=== PATIENT | female | born 1980 | race Caucasian/White ===

== ENCOUNTER 2023-05-10 15:53 | Emergency (ER) | payer OTHER, SELFPAY ==
--- NOTE | ~2023-05-10 | XR_ITS ---
EXAMINATION: XR abdomen/kub 1V DATE: 05/10/2023 21:14 INDICATION: Constipation. TECHNIQUE: A supine view of the abdomen on 2 radiographs was obtained. COMPARISON: CT abdomen and pelvis 12/09/2010 FINDINGS: There are no dilated loops of bowel. There is a moderate volume of stool in the colon. IMPRESSION: 1. Nonobstructive bowel gas pattern. Reviewed, dictated and finalized at location E. [employer]
[2023-05-10 15:58] VITALS: BP 146/100; RESP 113; TEMP 36.9; O2SAT 97
--- NOTE | 2023-05-10 18:48 | ED.GENADULT ---
HPI - General Adult General Chief complaint: Unspecified <Sussy Benavides PA-C - Last Filed: 05/11/23 18:53> Stated complaint: rectal impaction <Sussy Benavides PA-C - Last Filed: 05/11/23 18:53> Time Seen by Provider: 05/10/23 18:48 <Sussy Benavides PA-C - Last Filed: 05/11/23 18:53> Focused HPI: This is a 43 year old female that presents to the ER for abdominal pain and constipation. Reports chronic problems with constipation. She has done enemas with little relief. Reports associated anorexia. Denies fever, or vomiting. GENERAL: Well-appearing, well-nourished, and in no acute distress. HEAD: Normocephalic, atraumatic. CHEST: Clear to auscultation. ?No respiratory distress. HEART: Regular rate and rhythm.? NEURO: ?Alert and oriented x3. Patient screened in triage and initial orders placed.? ?Additional care and disposition to be based upon?diagnostic testing and treatment. <Sussy Benavides PA-C - Last Filed: 05/11/23 18:53> History of Present Illness HPI narrative: 43-year-old female presenting to the emergency department for evaluation of constipation. Patient states she has been having ongoing constipation over the last few days, patient states she did attempt a enema at home but is still having symptoms. Patient describes rectal pressure. <You Prieto MD - Last Filed: 05/14/23 08:12> Related Data Allergies/adverse reactions: Allergies Allergy/AdvReac Type Severity Reaction Status Date / Time amoxicillin Allergy Unknown Verified 01/09/13 13:14 <Sussy Benavides PA-C - Last Filed: 05/11/23 18:53> Review of Systems Review of Systems: All systems reviewed & are unremarkable except as noted in HPI and below <You Prieto MD - Last Filed: 05/14/23 08:12> PMFSH Past Medical History Medical History: Medical History (Updated 05/12/23 @ 00:00 by Background Daemon) History of gastroesophageal reflux (GERD) <Sussy Benavides PA-C - Last Filed: 05/11/23 18:53> Family History Family History: Family History (Updated 10/17/15 @ 23:21 by DOCTOR UNKNOWN) Mother Family history of rheumatoid arthritis Father Patient's father is in good health Sibling Patient's sister is in good health Patient's brother is in good health <Sussy Benavides PA-C - Last Filed: 05/11/23 18:53> Social History Social History: Social History Smoking status: Never smoker Alcohol intake: never <Sussy Benavides PA-C - Last Filed: 05/11/23 18:53> Exam Narrative: APPEARANCE: Well appearing, no pain, no distress, well-nourished. HEAD: normocephalic, atraumatic. EYES: PERRLA/EOMI, conjunctivae clear. NOSE: Normal no drainage EARS:TMS clear with good light reflex. THROAT: Pharynx clear, no exudate. NECK: Supple. No adenopathy, no masses. RESPIRATORY: Airway patent, respirations nonlabored. Clear to auscultation bilaterally, no rales, rhonchi, wheezing. CARDIOVASCULAR: Regular rate and rhythm without murmurs rubs or gallops. ABDOMINAL: Soft, nontender, nondistended, normal bowel sounds Rectal exam: Unable tolerate rectal disimpaction, large stool ball in the rectal wall MUSCULOSKELETAL: Moves all extremities. Strength/ROM intact, No edema, No calf tenderness. NEURO: Alert. Cranial nerves II through XII intact. Grossly intact SKIN: Warm, dry. Normal Color <You Prieto MD - Last Filed: 05/14/23 08:12> Course Course Emergency Course: 43-year-old female presenting ED for evaluation constipation/rectal impaction. Patient is afebrile with no leukocytosis and a stable hemoglobin, no acute electrolyte abnormalities, patient does have an elevated blood glucose. X-ray showed no evidence of obstruction. Patient did not tolerate the rectal exam but did have a palpable stool ball in the rectum. Patient did not take much of the soap suds edema, but patient did have significant response and had a large bowel movement. Patient states she does feel improved and i
[2023-05-10 21:58] LABS: Basophils Percent Auto 0.6 % (0.2-1.2); Eosinophils Absolute Auto 0.1 K/mm3 (0-0.3); Eosinophils Percent Auto 1.2 % (0-4.4); Hematocrit 43.4 % (37.0-47.0); Hemoglobin 14.5 g/dL (12.0-15.0); Immature Granulocyte Absolute 0.06 K/mm3 (0.00-0.031); Immature Granulocyte Percent A 1.2 % (0-0.5); Immature Platelet Fraction Pct 5.6 % (0.9-11.2); Lymphocytes Absolute Auto 1.86 K/mm3 (0.9-3.2); Lymphocytes Percent Auto 38.4 % (18.3-44.2); Mean Corpuscular HGB Conc 33.4 g/dl (32-36); Mean Corpuscular Hemoglobin 32.4 pg (26-34); Mean Corpuscular Volume 97.1 fl (80-100); Mean Platelet Volume 10.8 fl (7.4-10.4); Monocytes Absolute Auto 0.5 K/mm3 (0.1-0.6); Monocytes Percent Auto 9.5 % (2.6-8.5); Neutrophils Absolute Auto 2.4 K/mm3 (1.3-6.7); Neutrophils Percent Auto 49.1 % (45.5-73.1); Platelet Count Result 92 k/mm3 (150-375); Red Blood Count 4.47 M/mm3 (4.2-5.4); Red Cell Distribution Width 13.6 % (11.5-14.5); White Blood Count 4.8 K/mm3 (4.5-10.0)
[2023-05-10 22:06] LABS: Alanine Aminotransferase 67 U/L (6-35); Albumin Level 3.9 g/dL (3.5-5.1); Alkaline Phosphatase 155 U/L (38-126); Anion Gap 5 mmol/L (8-16); Aspartate Amino Transferase 61 U/L (14-36); Bilirubin,Total 0.9 mg/dL (0.2-1.3); Blood Urea Nitrogen 13 mg/dL (7-17); Calcium 9.2 mg/dL (8.4-10.2); Carbon Dioxide 26 mmol/L (22-30); Chloride 102 mmol/L (98-107); Estimated Glomerular Filt Rate > 60; Glucose 329 mg/dL (65-110); Lipase 49 U/L (23-300); Potassium 3.7 mmol/L (3.4-5.0); Sodium 133 mmol/L (137-145)
[2023-05-10 22:09] VITALS: BP 144/90; PULSE 86; RESP 16; O2SAT 96
--- NOTE | 2023-05-10 22:30 | PC.NURSE ---
Patient unable to tolerate soap suds. 250 ml retained and agreeable to holding for a period of time.
--- NOTE | 2023-05-10 23:02 | PC.NURSE ---
Patient ambulatory to restroom. Attempting to have a bowel movement at this time.
--- NOTE | 2023-05-10 23:20 | PC.NURSE ---
Patient states she was able to get a moderate amount of hard stool out. States she feels like she still needs to go some more but the pain was better. This RN offered to try administering more of the soap suds enema and patient declined, stating she would like to continue at home with OTC stool softeners.
--- NOTE | 2023-05-11 00:09 | PC.NURSE ---
No urine sample obtained. Patient unable to catch urine while having bowel movement.
[2023-05-11 00:10] VITALS: BP 118/100; PULSE 99; RESP 15; O2SAT 97
== END 2023-05-11 00:11 | disposition home or self-care (01) ==
PROVIDERS: Physician Assistant; Emergency Provider Emergency Medicine; PCP Internal Medicine
DX: K59.00 Constipation, unspecified (principal)
CPT/HCPCS: 36415; 74018; 80053; 83690; 85025; 85055; 99283